=== PATIENT | male | born 1975 | race Caucasian/White ===

== ENCOUNTER 2017-04-22 01:15 | Emergency (ER) | payer SELFPAY ==
[~2017-04-22] VITALS: Ht 195.6 cm; Wt 101.0 kg
[2017-04-22 01:16] VITALS: BP 230/120; PULSE 122; RESP 18; TEMP 99.6; O2SAT 100
--- NOTE | 2017-04-22 01:41 | PD ---
HPI Chief Complaint: Chest Pain Time Seen by Provider: 01:28 Travel History International Travel<30 days: No Contact w/Intl Traveler<30days: No Traveled to known affect area: No History of Present Illness HPI 42-year-old male patient arrives describing 2 hours of chest pain in the left chest. He has a history of IV drug abuse and reports using Dilaudid about 10 hours or so earlier in the day. He states that a few hours prior to ER arrival he had a headache and asked a friend for Motrin however received a blue tablet which he ingested and since has developed increasing chest pain. Associated symptoms include shortness of breath. He denies numbness tingling weakness in the face or neck or extremity. Patient denies a past medical history. [facility] Past Medical History Hypertension: Yes Immunizations Current: Yes Tetanus Vaccination: < 5 Years Influenza Vaccination: Yes Social History Alcohol Use: No Tobacco Use: Yes Substance Use: No Allergies-Medications (Allergen,Severity, Reaction): Coded Allergies: Sulfa (Sulfonamide Antibiotics) (Verified Allergy, Severe, Hives, 04/22/17 ) Review of Systems Except as stated in HPI: all other systems reviewed are Neg General / Constitutional: No: Fever Physical Exam Narrative GENERAL: 42-year-old male well-nourished well-developed no acute distress SKIN: Warm and dry. Excoriated lesions about the face and extremities. HEAD: Atraumatic. Normocephalic. EYES: Pupils equal and round. No scleral icterus. No injection or drainage. ENT: No nasal bleeding or discharge. Mucous membranes pink and moist. NECK: Trachea midline. No JVD. CARDIOVASCULAR: Tachycardia. Regular rhythm. RESPIRATORY: No accessory muscle use. Clear to auscultation. Breath sounds equal bilaterally. GASTROINTESTINAL: Abdomen soft, non-tender, nondistended. Hepatic and splenic margins not palpable. MUSCULOSKELETAL: Extremities without clubbing, cyanosis, or edema. No obvious deformities. NEUROLOGICAL: Awake and alert. No obvious cranial nerve deficits. Motor grossly within normal limits. Five out of 5 muscle strength in the arms and legs. Normal speech. PSYCHIATRIC: Appropriate mood and affect; insight and judgment normal. Data Data Last Documented VS Vital Signs Date Time Temp Pulse Resp B/P (MAP) Pulse Ox O2 Delivery O2 Flow Rate FiO2 04/22/17 01:36 04/22/17 01:16 99.6 122 18 100 Room Air Vital Signs Date Time Temp Pulse Resp B/P (MAP) Pulse Ox O2 Delivery O2 Flow Rate FiO2 04/22/17 01:36 04/22/17 01:16 99.6 122 18 230/120 (156) 100 Room Air MDM Medical Decision Making Medical Screen Exam Complete: Yes Emergency Medical Condition: Yes Differential Diagnosis Endocarditis, pulmonary embolism, dissection, chronic pain, pneumonia, sepsis Narrative Course Immediately after I completed the exam and history. Pt demonstrated decisional capacity and cannot be kept against his will here however he had significantly abnormal vital signs. Unfortunately we could not delay his departure or discuss alternatives to leaving against medical advice as the patient was insistent on leaving expeditiously. Diagnosis Primary Impression: Left against medical advice Patient Instructions: General Instructions Departure Forms: Tests/Procedures Disposition: 07 AGAINST MEDICAL ADVICE Condition: Stable Chance Canales MD Apr 22, 2017 01:41
== END 2017-04-22 01:33 | disposition left against medical advice (07) ==
LOC: NEPC 01:15
DX: R00.0 Tachycardia, unspecified (principal); L98.8 Other specified disorders of the skin and subcutaneous tissue; R06.02 Shortness of breath; I10 Essential (primary) hypertension; R51 Headache; Z88.2 Allergy status to sulfonamides
CPT/HCPCS: 99281